=== PATIENT | male | born 1940 | race Caucasian/White ===

== ENCOUNTER 2016-11-29 11:28 | Outpatient (CLI) | END 2016-11-29 11:29 | disposition home or self-care (01) | CPT/HCPCS: 99213; G0463 ==

== ENCOUNTER 2018-03-28 08:00 | Outpatient (CLI) | payer MEDICARE, OTHER ==
[2018-03-28 19:39] LABS: BASOPHILS # (AUTO) 0.1 10^3/uL (0.0-0.1); BASOPHILS % (AUTO) 0.7 %; EOSINOPHILS # (AUTO) 0.1 10^3/uL (0.0-0.7); EOSINOPHILS % (AUTO) 0.9 %; HGB - HEMOGLOBIN 13.7 g/dL (14.0-18.0); LYMPHOCYTES % (AUTO) 14.3 %; MEAN CORPUSCULAR HGB CONC 33.6 g/dL (32.0-36.0); MEAN CORPUSCULAR VOLUME 89.4 fL (80.0-94.0); MEAN PLATELET VOLUME 8.6 fL (7.4-11.4); MONOCYTES # (AUTO) 0.5 10^3/uL (0.0-1.0); MONOCYTES % (AUTO) 7.5 %; NEUTROPHILS # (AUTO) 5.3 10^3/uL (1.5-6.6); NEUTROPHILS % (AUTO) 76.6 %; PLT - PLATELET COUNT 168 10^3/uL (130-450); RED BLOOD COUNT 4.55 10^6/uL (4.70-6.10); RED CELL DISTRIBUTION WIDTH 13.2 % (12.0-15.0); WHITE BLOOD COUNT 6.9 x10^3/uL (4.8-10.8)
[2018-03-28 19:45] LABS: ALBUMIN 4.4 g/dL (3.2-5.5); ALBUMIN/GLOBULIN RATIO 1.7 (1.0-2.2); ALKALINE PHOSPHATASE 50 IU/L (42-121); ALT ALANINE AMINOTRANSFERASE 23 IU/L (10-60); AST ASPARTATE AMINOTRANSFERASE 23 IU/L (10-42); BILIRUBIN,TOTAL 0.7 mg/dL (0.2-1.0); BUN - BLOOD UREA NITROGEN 17 mg/dL (6-20); CALCIUM 9.2 mg/dL (8.5-10.3); CARBON DIOXIDE - CO2 28 mmol/L (21-32); CHLORIDE 101 mmol/L (101-111); CREATININE 0.9 mg/dL (0.6-1.2); GFR - MDRD 82 (>89); GLUCOSE 114 mg/dL (70-100); SODIUM 136 mmol/L (135-145)
[2018-03-28 19:51] LABS: TROPONIN I < 0.04 ng/mL (<0.49)
[2018-03-28 19:53] LABS: CREATINE KINASE MB 1.6 ng/mL (0.6-6.3)
== END 2018-03-28 08:01 | disposition home or self-care (01) ==
LOC: LAB.WCP 08:00
PROVIDERS: ATTEND Family Medicine
DX: R07.9 Chest pain, unspecified (principal)
CPT/HCPCS: 36415; 80053; 82553; 84443; 84484; 85025; 85379

== ENCOUNTER 2020-03-10 08:00 | Outpatient (CLI) | payer MEDICARE, OTHER ==
[2020-03-10 12:28] LABS: BASOPHILS % (AUTO) 0.8 %; EOSINOPHILS # (AUTO) 0.1 10^3/uL (0.0-0.7); EOSINOPHILS % (AUTO) 1.8 %; LYMPHOCYTES # (AUTO) 1.2 10^3/uL (1.5-3.5); LYMPHOCYTES % (AUTO) 30.5 %; MEAN PLATELET VOLUME 10.7 fL (7.4-11.4); MONOCYTES # (AUTO) 0.4 10^3/uL (0.0-1.0); MONOCYTES % (AUTO) 9.4 %; NEUTROPHILS # (AUTO) 2.3 10^3/uL (1.5-6.6); NEUTROPHILS % (AUTO) 57.2 %; PLT - PLATELET COUNT 209 10^3/uL (130-450); RED BLOOD COUNT 4.51 10^6/uL (4.70-6.10); RED CELL DISTRIBUTION WIDTH 11.9 % (12.0-15.0); WHITE BLOOD COUNT 3.9 x10^3/uL (4.8-10.8)
[2020-03-10 12:59] LABS: ALBUMIN 4.3 g/dL (3.2-5.5); ALBUMIN/GLOBULIN RATIO 1.7 (1.0-2.2); ALKALINE PHOSPHATASE 41 IU/L (42-121); ALT ALANINE AMINOTRANSFERASE 15 IU/L (10-60); AST ASPARTATE AMINOTRANSFERASE 19 IU/L (10-42); BILIRUBIN,TOTAL 0.8 mg/dL (0.2-1.0); BUN - BLOOD UREA NITROGEN 18 mg/dL (6-20); CALCIUM 9.1 mg/dL (8.5-10.3); CARBON DIOXIDE - CO2 27 mmol/L (21-32); CHLORIDE 107 mmol/L (101-111); CHOL/HDL RATIO 2.5 (<5.0); CHOLESTEROL 145 mg/dL; GLUCOSE 105 mg/dL (70-100); HDL CHOLESTEROL 58 mg/dL; LDL CHOLESTEROL,CALCULATED 73 mg/dL; LDL/HDL RATIO 1.3 (<3.6); SODIUM 137 mmol/L (135-145); TOTAL PROTEIN 6.9 g/dL (6.7-8.2); VLDL CHOLESTEROL 14 mg/dL
== END 2020-03-10 23:59 | disposition home or self-care (01) ==
LOC: LAB.WCP 08:00
PROVIDERS: ATTEND Family Medicine
DX: I10 Essential (primary) hypertension (principal); E78.5 Hyperlipidemia, unspecified; R42 Dizziness and giddiness; F90.9 Attention-deficit hyperactivity disorder, unspecified type
CPT/HCPCS: 36415; 80053; 80061; 83721; 84443; 85025

== ENCOUNTER 2020-06-11 10:59 | Outpatient (CLI) | payer MEDICARE | END 2020-06-11 23:59 | disposition home or self-care (01) | LOC: LAB.WCP 10:59 | PROVIDERS: ATTEND Family Medicine | DX: R41.3 Other amnesia (principal) | CPT/HCPCS: 36415; 82607 ==

== ENCOUNTER 2020-11-08 19:19 | Emergency (ER) | payer MEDICARE ==
[2020-11-08 20:01] LABS: BILIRUBIN,URINE NEGATIVE (NEGATIVE); GLUCOSE, URINE (UA) NEGATIVE (NEGATIVE); KETONES,URINE (UA) NEGATIVE (NEGATIVE); LEUKOCYTE ESTERASE, URINE NEGATIVE (NEGATIVE); NITRITE,URINE NEGATIVE (NEGATIVE); OCCULT BLOOD,URINE NEGATIVE (NEGATIVE); PROTEIN,URINE NEGATIVE (NEGATIVE); UROBILINOGEN,URINE 0.2 (NORMAL) E.U./dL (NORMAL)
[2020-11-08 20:03] LABS: CLARITY,URINE CLEAR (CLEAR)
[2020-11-08 20:13] LABS: BASOPHILS % (AUTO) 0.7 %; EOSINOPHILS # (AUTO) 0.1 10^3/uL (0.0-0.7); EOSINOPHILS % (AUTO) 1.8 %; HGB - HEMOGLOBIN 14.1 g/dL (14.0-18.0); LYMPHOCYTES # (AUTO) 1.6 10^3/uL (1.5-3.5); MEAN CORPUSCULAR HEMOGLOBIN 29.6 pg (27.0-31.0); MEAN CORPUSCULAR HGB CONC 32.1 g/dL (32.0-36.0); MEAN CORPUSCULAR VOLUME 92.2 fL (80.0-94.0); MEAN PLATELET VOLUME 9.8 fL (7.4-11.4); MONOCYTES # (AUTO) 0.3 10^3/uL (0.0-1.0); NEUTROPHILS # (AUTO) 3.4 10^3/uL (1.5-6.6); NEUTROPHILS % (AUTO) 62.1 %; PLT - PLATELET COUNT 205 10^3/uL (130-450); RED BLOOD COUNT 4.76 10^6/uL (4.70-6.10); RED CELL DISTRIBUTION WIDTH 11.9 % (12.0-15.0); WHITE BLOOD COUNT 5.5 x10^3/uL (4.8-10.8)
[2020-11-08 20:29] LABS: ALBUMIN 4.5 g/dL (3.2-5.5); ALBUMIN/GLOBULIN RATIO 1.7 (1.0-2.2); BILIRUBIN,TOTAL 0.7 mg/dL (0.2-1.0); CALCIUM 9.3 mg/dL (8.5-10.3); CREATININE 0.9 mg/dL (0.6-1.2); TOTAL PROTEIN 7.1 g/dL (6.7-8.2)
[2020-11-08] MEDS ORDERED: IOVERSOL 320 100 ML VIAL IVP ONE ×2 (20:58→21:27)
--- NOTE | 2020-11-08 21:12 | ED Physician Documentation ---
History of Present Illness - Stated complaint Stated Complaint: CONFUSION,MALE - Chief complaint Chief Complaint: General - History obtained from History obtained from: Patient, Family - History of Present Illness Timing: Today Pain level max: 0 Pain level now: 0 - Additonal information Additional information: 80-year-old male with confusion today. He could not remember where he was or what he was doing. This persisted for most of the day, is improving now. He did remember people's names. He did remember himself in who he was. The family states that he sounded like a broken record asking repetitive questions today. No other neurological deficits. Nothing makes it better or worse. Has never had similar symptoms in the past. No medication changes. No fevers or recent illness. Review of Systems Ten Systems: 10 systems reviewed and negative Constitutional: denies: Fever, Chills Nose: denies: Rhinorrhea / runny nose, Congestion Cardiac: denies: Chest pain / pressure Respiratory: denies: Cough GI: denies: Abdominal Pain, Nausea, Vomiting, Diarrhea Skin: denies: Rash Musculoskeletal: denies: Neck pain, Back pain Neurologic: denies: Generalized weakness, Focal weakness, Numbness, Headache PD PAST MEDICAL HISTORY - Past Medical History Past Medical History: Yes Cardiovascular: Murmur Respiratory: Other Endocrine/Autoimmune: None GI: Colon polyps : Other HEENT: None Psych: Depression, Anxiety Musculoskeletal: Osteoarthritis Derm: None - Past Surgical History Past Surgical History: Yes General: Appendectomy, Colonoscopy - Present Medications Home Medications: Ambulatory Orders Medication Instructions Recorded Confirmed Atorvastatin [Lipitor] 10 mg PO DAILY 11/08/20 11/08/20 - Allergies Allergies/Adverse Reactions: Allergies Allergy/AdvReac Type Severity Reaction Status Date / Time No Known Drug Allergies Allergy Verified 11/08/20 19:39 - Social History Does the pt smoke?: No Smoking Status: Never smoker Does the pt drink ETOH?: No Does the pt have substance abuse?: No PD ED PE NORMAL - Vitals Vital signs reviewed: Yes - General General: Alert and oriented X 3, No acute distress, Well developed/nourished - HEENT HEENT: Atraumatic, PERRL, Moist mucous membranes - Neck Neck: Supple, no meningeal sign - Cardiac Cardiac: RRR, Strong equal pulses - Respiratory Respiratory: No respiratory distress, Clear bilaterally - Abdomen Abdomen: Normal bowel sounds, Soft, Non tender, Non distended - Derm Derm: Warm and dry - Extremities Extremities: No edema - Neuro Neuro: Alert and oriented X 3, 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, No motor deficit, No sensory deficit, Normal speech Eye Opening: Spontaneous Motor: Obeys Commands Verbal: Oriented GCS Score: 15 - Psych Psych: Normal mood, Normal affect Results - Vitals Vitals: Vital Signs - 24 hr 11/08/20 11/08/20 19:27 21:46 Temperature 98.0 C H Heart Rate 72 62 Respiratory 18 18 Rate Blood Pressure 131/71 H 146/84 H O2 Saturation 99 99 Oxygen O2 Source Room air - EKG (time done) 2038 Rate: Rate (enter#) (64) Rhythm: NSR Odell: Normal Intervals: Normal [place] QRS: Normal Ischemia: Normal ST segments - Labs Labs: Laboratory Tests 11/08/20 11/08/20 11/08/20 19:50 20:08 20:08 WBC 5.5 RBC 4.76 Hgb 14.1 Hct 43.9 MCV 92.2 MCH 29.6 MCHC 32.1 RDW 11.9 L Plt Count 205 MPV 9.8 Neut # (Auto) 3.4 Lymph # (Auto) 1.6 [place] # (Auto) 0.3 Eos # (Auto) 0.1 Baso # (Auto) 0.0 Absolute Nucleated RBC 0.00 Nucleated RBC % 0.0 Sodium 137 Potassium 3.9 Chloride 102 Carbon Dioxide 27 Anion Gap 8.0 BUN 14 Creatinine 0.9 Estimated GFR (MDRD) 81 L Glucose 145 H Calcium 9.3 Total Bilirubin 0.7 AST 19 ALT 15 Alkaline Phosphatase 47 Total Protein 7.1 Albumin 4.5 Globulin 2.6 Albumin/Globulin Ratio 1.7 Lipase 27 Urine Color YELLOW Urine Clarity CLEAR Urine pH 7.0 Ur Specific [place] 1.015 Urine Protein NEGATIVE Urine Glucose (UA) NEGATIVE Urine Ketones NEGATIVE Urine Occult Blood NEGATIVE Urine Nitrite NEGATIVE Urine Bilirubin NEGATIVE Urine Urobilinogen 0.2 (NORMAL) Ur Leukocyte Esterase NEGATIVE Ur Microscopic Review NOT INDICATED Urine Culture Comments NOT INDICATED - Rads (name of study) CT angiogram head Radiology: Prelim report reviewed, EMP read contemporaneously, See rad report (No acute abnormality) CT angiogram neck Radiology: Prelim report reviewed, EMP read contemporaneously, See rad report (No acute abnormality) PD MEDICAL DECISION MAKING - ED course Complexity details: reviewed results, re-evaluated patient, considered differential, d/w patient, d/w family ED course: Patient with what appears to be transient global amnesia. Symptoms are rapidly resolving and he is back to his normal baseline. No acute findings on CT angiogram. He does not want to stay in the hospital for an MRI tomorrow.No evidence of UTI or infection. Normal NIH stroke scale. We will have him follow-up this week with his doctor for an MRI. Patient and family counseled regarding signs and symptoms for which I believe and urgent re-evaluation would be necessary. Patient with good understanding of and agreement to plan and is comfortable going home at this time This document was made in part using voice recognition software. While efforts are made to proofread this document, sound alike and grammatical errors may occur. Departure - Departure Disposition: 01 Home, Self Care Clinical Impression: Transient global amnesia Condition: Good Instructions: ED Altered Loc Follow-Up: Lex Lambert DO [Primary Care Provider] - Within 1 week Comments: Your testing is normal tonight. Your symptoms appear consistent with transient global amnesia. It is recommended that you have an outpatient MRI with your doctor. Return if you worsen. Follow-up with your doctor for further care. Discharge Date/Time: 11/08/20 22:20 NIHSS - Time Time: 20:20 - Level of Consciousness Level of consciousness: (0) Alert, Keenly responsive LOC Questions: (0) Answers both Q's correct LOC Commands: (0) Performs both correctly - Gaze Best Gaze: (0) Normal - Visual Visual: (0) No loss - Facial Palsy Facial Palsy: (0) Normal, symmetrical movement - Motor Arms (both separate) Motor Arm (right): (0) No drift Motor Arm (left): (0) No drift - Motor Legs (both separate) Motor Leg (right): (0) No drift Motor Leg (left): (0) No drift - Limb Ataxia Limb Ataxia: (0) Absent - Sensory Sensory: (0) Normal - Best Language Best Language: (0) No aphasia - Dysarthria Dysarthria: (0) Normal - Extinction and Inattention (formally neg Extinction and inattention: (0) No abnormality - Total Score/Results Total Score/Result: 0
--- NOTE | 2020-11-08 21:43 | CT Report ---
PROCEDURE: ANGIO NECK W INDICATIONS: altered mental status CONTRAST: IV CONTRAST: Optiray 320 ml: 100 PO CONTRAST: *NO PO CONTRAST TECHNIQUE: After the administration of intravenous contrast, 1.5 mm axial sections acquired from the aortic arch to the [place] of [place]inguez. Coronal 3-D maximum intensity projection (MIP) and/or volume rendering ref ormats were then performed. For radiation dose reduction, the following was used: automated exposur e control, adjustment of mA and/or kV according to patient size. COMPARISON: None. FINDINGS: Image quality: Excellent. Carotid system: The great vessels demonstrate a conventional anatomy as they arise from the aortic a [facility]. The origins of the common carotid arteries appear patent. The common carotid arteries demonstr ate normal calibers and courses. The bifurcation regions appear normal bilaterally. The internal ca rotid arteries demonstrate normal caliber and course. Posterior circulation: The origins of the vertebral arteries appear patent. The more superior porti ons of the vertebral arteries demonstrate normal course and caliber. They join to form a normal appe aring basilar artery. Soft tissues: Visualized neck soft tissues demonstrate no suspicious abnormalities. The left thyroi d lobe has a 1.3 cm hypodensity. Bones: No suspicious bony lesions. Visualized cervical spine appears normally aligned. IMPRESSION: 1. Normal CT angiogram of the neck. 2. 1.3 cm left thyroid lobe hypodensity. The estimate of stenosis included in the report of the imaging study was calculated using the NASCET method Reviewed by: Benton Lagos on 11/08/2020 9:42 PM PST Approved by: Benton Lagos on 11/08/2020 9:42 PM PST Station ID: [id number]
[2020-11-08 21:47] VITALS: BP 146/84
--- NOTE | 2020-11-08 21:48 | CT Report ---
PROCEDURE: ANGIO HEAD W/WO INDICATIONS: altered mental status CONTRAST: IV CONTRAST: Optiray 320 ml: 100 PO CONTRAST: *NO PO CONTRAST TECHNIQUE: Precontrast 4.5 mm thick angled axial sections acquired from the foramen magnum to the vertex. Afte r the administration of intravenous contrast, 1 mm thick sections acquired through the [place] of [place] is. Postcontrast 4.5 mm thick sections then re-acquired from the foramen magnum to the vertex. 3-di mensional kowculp-kziriyalc-pyywcskemx (MIP) and/or volume rendering reformats were acquired of the c entral intracranial vasculature. For radiation dose reduction, the following was used: automated ex posure control, adjustment of mA and/or kV according to patient size. COMPARISON: None FINDINGS: Image quality: Excellent. Anterior circulation: Intracranial internal carotid arteries are normal in size and flow. The flow within the paired anterior cerebral arteries is normal and symmetric. The flow within the middle cer ebral arteries is normal and symmetric. The anterior communicating artery is seen. No aneurysms are seen. Posterior circulation: Visualized portions of the vertebral arteries demonstrate normal caliber, and join to form a normal appearing basilar artery. Flow within the posterior cerebral arteries is norm al and symmetric. No aneurysms are seen. CSF spaces: Ventricles are normal in size and shape. Basal cisterns are patent. No extra-axial flu id collections. Brain: No midline shift. No intracranial bleeds or masses. [place]-white matter interface appears int act. Skull and face: Calvarium and facial bones appear intact, without suspicious lesions. Sinuses: Visualized sinuses and mastoids are clear. IMPRESSION: 1. No acute intracranial abnormality. 2. Normal CTA of the head. Reviewed by: Benton Lagos on 11/08/2020 9:47 PM PST Approved by: Benton Lagos on 11/08/2020 9:47 PM PST Station ID: [id number]
== END 2020-11-08 22:20 | disposition home or self-care (01) ==
LOC: ED 19:19
DX: G45.4 Transient global amnesia (principal)
CPT/HCPCS: 36415; 70496; 70498; 80053; 81003; 83690; 85025; 93005; 99284; 99285; Q9967; 81001; 87086

== ENCOUNTER 2020-11-10 08:59 | Observation (INO) | payer MEDICARE, OTHER ==
--- NOTE | 2020-11-10 09:51 | XRAY Report ---
PROCEDURE: Chest 1 View X-Ray INDICATIONS: Chest Pain TECHNIQUE: One view of the chest was acquired. COMPARISON: 03/28/2018 FINDINGS: Surgical changes and devices: None. Lungs and pleura: No pleural effusions or pneumothorax. Lungs are clear. Mediastinum: Mediastinal contours appear normal. Heart size is normal. Bones and chest wall: No suspicious bony lesions. Overlying soft tissues appear unremarkable. IMPRESSION: No acute cardiopulmonary pathology. Reviewed by: Geovanni Chong MD on 11/10/2020 9:49 AM [facility] Approved by: Geovanni Chong MD on 11/10/2020 9:49 AM [facility] Station ID: [id number]
[2020-11-10 09:57] LABS: BASOPHILS % (AUTO) 0.7 %; EOSINOPHILS # (AUTO) 0.1 10^3/uL (0.0-0.7); EOSINOPHILS % (AUTO) 2.8 %; HGB - HEMOGLOBIN 13.9 g/dL (14.0-18.0); LYMPHOCYTES # (AUTO) 1.2 10^3/uL (1.5-3.5); LYMPHOCYTES % (AUTO) 28.8 %; MEAN CORPUSCULAR HEMOGLOBIN 30.3 pg (27.0-31.0); MEAN CORPUSCULAR HGB CONC 33.2 g/dL (32.0-36.0); MEAN CORPUSCULAR VOLUME 91.5 fL (80.0-94.0); MEAN PLATELET VOLUME 9.5 fL (7.4-11.4); MONOCYTES # (AUTO) 0.4 10^3/uL (0.0-1.0); MONOCYTES % (AUTO) 8.8 %; NEUTROPHILS # (AUTO) 2.5 10^3/uL (1.5-6.6); NEUTROPHILS % (AUTO) 58.7 %; PLT - PLATELET COUNT 168 10^3/uL (130-450); RED BLOOD COUNT 4.58 10^6/uL (4.70-6.10); WHITE BLOOD COUNT 4.3 x10^3/uL (4.8-10.8)
[2020-11-10 10:11] LABS: ALBUMIN 4.1 g/dL (3.2-5.5); ALBUMIN/GLOBULIN RATIO 1.6 (1.0-2.2); BILIRUBIN,TOTAL 0.8 mg/dL (0.2-1.0); CALCIUM 9.2 mg/dL (8.5-10.3); TOTAL PROTEIN 6.7 g/dL (6.7-8.2)
[2020-11-10] MEDS ORDERED: LACTATED RINGERS 1,000 ML IV ONE (10:52)
[2020-11-10] MEDS ORDERED: ASPIRIN 325 MG TABLET PO STA (11:47)
--- NOTE | 2020-11-10 12:39 | ED Physician Documentation ---
PD HPI CHEST PAIN - Stated complaint Stated Complaint: CHEST PX - Chief complaint Chief Complaint: Cardiac - History obtained from History obtained from: Patient, Family () - Additional information Additional information: 80-year-old man with past medical history of high blood pressure, TBI, no prior cardiac history, presents with left-sided chest pain radiating to left shoulder starting suddenly at 9 AM associated with mild frontal headache. Pain is a 5 out of 10, constant, aching/sharp. Nonexertional. No shortness of breath. Denies dizziness or diaphoresis. Denies cough, fever or back pain. Review of Systems Ten Systems: 10 systems reviewed and negative Constitutional: denies: Fever, Chills Cardiac: reports: Chest pain / pressure Respiratory: denies: Dyspnea, Cough Neurologic: reports: Headache PD PAST MEDICAL HISTORY - Past Medical History Cardiovascular: Murmur Respiratory: Other Endocrine/Autoimmune: None GI: Colon polyps : Other HEENT: None Psych: Depression, Anxiety Musculoskeletal: Osteoarthritis Derm: None - Past Surgical History Past Surgical History: Yes General: Appendectomy, Colonoscopy - Present Medications Home Medications: Ambulatory Orders Medication Instructions Recorded Confirmed Atorvastatin [Lipitor] 10 mg PO DAILY 11/08/20 11/08/20 - Allergies Allergies/Adverse Reactions: Allergies Allergy/AdvReac Type Severity Reaction Status Date / Time No Known Drug Allergies Allergy Verified 11/10/20 09:21 - Social History Does the pt smoke?: No Smoking Status: Never smoker Does the pt drink ETOH?: No Does the pt have substance abuse?: No PD ED PE NORMAL - Vitals Vital signs reviewed: Yes - General General: Alert and oriented X 3 - HEENT HEENT: Atraumatic, PERRL, EOMI - Neck Neck: Supple, no meningeal sign, No JVD - Cardiac Cardiac: RRR - Respiratory Respiratory: No respiratory distress, Clear bilaterally - Abdomen Abdomen: Non tender, Non distended - Male Male : Deferred - Rectal Rectal: Deferred - Back Back: No CVA TTP - Derm Derm: Normal color - Extremities Extremities: No deformity, No edema - Neuro Neuro: Alert and oriented X 3 (mild word finding difficulty. ) Results - Vitals Vitals: Vital Signs - 24 hr 11/10/20 11/10/20 11/10/20 09:18 09:38 10:15 Temperature 36.4 C L Heart Rate 67 68 62 Respiratory 20 16 21 Rate Blood Pressure 140/82 H 108/77 131/72 H O2 Saturation 99 98 98 11/10/20 10:57 Temperature Heart Rate 59 L Respiratory 13 Rate Blood Pressure 127/75 O2 Saturation 98 Oxygen O2 Source Room air - EKG (time done) 1153 Rate: Rate (enter#) (63) Rhythm: NSR - Labs Labs: Laboratory Tests 11/10/20 11/10/20 11/10/20 09:48 09:48 09:48 WBC 4.3 L RBC 4.58 L Hgb 13.9 L Hct 41.9 L MCV 91.5 MCH 30.3 MCHC 33.2 RDW 12.0 Plt Count 168 MPV 9.5 Neut # (Auto) 2.5 Lymph # (Auto) 1.2 L [place] # (Auto) 0.4 Eos # (Auto) 0.1 Baso # (Auto) 0.0 Absolute Nucleated RBC 0.00 Nucleated RBC % 0.0 Sodium 141 Potassium 4.3 Chloride 105 Carbon Dioxide 29 Anion Gap 7.0 BUN 23 H Creatinine 1.0 Estimated GFR (MDRD) 72 L Glucose 107 H Calcium 9.2 Total Bilirubin 0.8 AST 15 ALT 15 Alkaline Phosphatase 43 Troponin I High Sens 23.8 H* Total Protein 6.7 Albumin 4.1 Globulin 2.6 Albumin/Globulin Ratio 1.6 Lipase 26 PD MEDICAL DECISION MAKING - ED course Complexity details: re-evaluated patient, d/w patient, d/w family, d/w netsuite consultant ED course: 80-year-old male with history of high blood pressure, no prior cardiac history and no prior cardiac work-up presents with chest pain starting at 9 AM, also with elevated troponin of 23.8. Discussed with hospitalist who will see him in observation. Plan for stress test tomorrow. Departure - Departure Disposition: ED Place in Observation Clinical Impression: Chest pain, Headache, Shoulder pain Condition: Stable
[2020-11-10] MEDS ORDERED: SODIUM CHLORIDE FLUSH 0.9% 10 ML SYRINGE IVP PRN (12:47)
[2020-11-10] MEDS ORDERED: NITROGLYCERIN SL 0.4 MG TABLET SL PRN (12:52)
[2020-11-10 14:57] LABS: C. PNEUMONIAE- RESP PCR PANEL NOT DETECTED
--- NOTE | 2020-11-10 14:57 | PHARMACY PROGRESS NOTE ---
- Best Possible Medication History Admit Date and Time: 11/10/20 1247 Processed by: Pharmacy Medication History completed: Yes Patient Interview: Completed Secondary Source(s): Physician records (PATIENT INTERVIEWED BY INFORMATICS EDUCATOR. PATIENT ABLE TO CONFIRM HOME MEDICATON. PATIENT ONLY TAKES ATORVASTATIN AT HOME), Pharmacy records, Insurance records As the person ultimately responsible for medication therapy, providers are able to order a medication from an existing home medication list in [facility] via the "Reconcile Routine" prior to Confirmation of that medication by naval surface fire support planner. Such practice is discouraged except when the physician, in their clinical judgment, deems that a medical need exists for a medication without regard to previous use.
[2020-11-10] MEDS: ACETAMINOPHEN 325 MG TABLET PO PRN ×2 (17:46→22:19)
[2020-11-10] MEDS: SODIUM CHLORIDE FLUSH 0.9% 10 ML SYRINGE IVP SCH (17:47)
--- NOTE | 2020-11-10 19:36 | HISTORY & PHYSICAL EXAMINATION ---
DATE OF SERVICE: 11/10/2020 Physician: Ela Arevalo MD HISTORY OF PRESENT ILLNESS: This is a 80-year-old white male with a history of hypertension, previously on lisinopril, but currently no longer needs treatment; history of hyperlipidemia, on atorvastatin. He remembers having chest pain about 2 years ago for which he underwent evaluation and was told things were normal. He does not remember details of those symptoms or the evaluation. He was seen in the emergency room here just 24 hours ago for generalized amnesia. A head CT was unremarkable and his mentation improved under observation in the ER, and he was discharged home with recommendations to see his PCP, consideration for an MRI was advised. Today the patient awoke with new onset of chest pain. He states that it was a squeezing type of pain in the left anterior chest and after several minutes started to have the same feeling in his left upper arm. There was no shortness of breath, diaphoresis, palpitations, syncope. He denies dyspnea on exertion or leg edema. He states this is something like the old symptoms, but were much more severe and more squeezing in nature and shows me a Alvarez sign as he describes this. He took nothing for this at home, and then his brought him to the ER, his symptoms were dissipating on their own; therefore, he received nothing for chest pain in the ER, he states. He did receive 4 baby aspirin in the ER. He states that after being brought to his room, he was moving for sitting forward and did get another jabbing feeling of this similar kind of pain during changing body position. He is being placed in Observation status for lab testing of troponins and for evaluation of chest pain with a stress test and Echo. PAST MEDICAL HISTORY 1. Hypertension, but this has now resolved and he needs no treatment, according to him. 2. Hyperlipidemia, on medication. 3. Murmur as a child, which he "outgrew." FAMILY HISTORY: Negative for heart disease or diabetes. He has a brother that of unknown causes, a sister who is older than him and is in relatively good health. He has 2 children who are healthy. SOCIAL HISTORY: Lives with his second . 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 He is active around the house. He is a nonsmoker, who only smoked for about 5 years from age 31 to 36. He drinks no alcohol. There is no illicit drug use history. REVIEW OF SYSTEMS: The patient admits that his "memory is failing." He states he is compliant with his medications. A comprehensive review of systems was performed and the pertinent positives are listed, the rest are negative. MEDICATIONS: Atorvastatin 10 mg daily only. ALLERGIES: NONE. PHYSICAL EXAM GENERAL: White male who appears younger than his age. VITAL SIGNS: Blood pressure 128/90, heart rate 60 in sinus rhythm, afebrile, room air saturation 96. HEENT: Unremarkable. He has moist oral mucosa. NECK: No JVD or carotid bruits. CHEST: Clear. HEART: Distant heart sounds. There is a 1/6 systolic murmur at the lower left sternal border. There is no gallop evident. ABDOMEN: Soft, positive bowel sounds, nontender. EXTREMITIES: No clubbing, cyanosis, or edema. NEUROLOGIC: Grossly intact. LABORATORY DATA: Normal electrolytes, BUN 23, creatinine 1.0. The first troponin high sensitivity is 23.8. White blood count 4.3, hemoglobin 13.9, platelet count 168. No INR was done. His COVID test is negative. CHEST X-RAY: Unremarkable. EKG: Normal sinus rhythm. No acute changes. Compared to his EKG from 24 hours previously, he had J-point elevation then in lead V1 and V2. IMPRESSION/DIAGNOSES: 1. Chest pain. 2. Prerenal azotemia. 3. Hyperlipidemia. 4. Poor memory. 5. Hard of hearing. 6. Heart murmur. PLAN: Place the patient in Observation status on telemetry. Obtain troponin set #2. Obtain a fasting lipid panel. Order sublingual nitroglycerin p.r.n. to give if chest pain should recur. Start him 1 baby aspirin daily. Obtain an Echo to evaluate for structural or valve abnormalities, given the heart murmur, and also evaluate for pericarditis given the positional nature of his chest pain. Proceed to a myocardial perfusion nuclear stress test. DEEP VENOUS THROMBOSIS PROPHYLAXIS: SCDs. CODE STATUS: FULL CODE. ATTESTATION: The patient is expected to be discharged or transferred to another facility within 72 hours within 96 hours: Yes. cc: Lex Lambert DO TD: 11/10/2020 19:11 [facility]
[2020-11-10] MEDS ORDERED: ATORVASTATIN 10 MG TABLET PO SCH (21:00)
[2020-11-11] MEDS: SODIUM CHLORIDE FLUSH 0.9% 10 ML SYRINGE IVP SCH ×2 (01:14→08:02)
[2020-11-11 05:27] LABS: BASOPHILS % (AUTO) 0.7 %; EOSINOPHILS # (AUTO) 0.2 10^3/uL (0.0-0.7); EOSINOPHILS % (AUTO) 3.5 %; HGB - HEMOGLOBIN 13.2 g/dL (14.0-18.0); LYMPHOCYTES # (AUTO) 1.6 10^3/uL (1.5-3.5); MEAN CORPUSCULAR HEMOGLOBIN 29.9 pg (27.0-31.0); MEAN CORPUSCULAR HGB CONC 32.4 g/dL (32.0-36.0); MEAN CORPUSCULAR VOLUME 92.3 fL (80.0-94.0); MEAN PLATELET VOLUME 9.7 fL (7.4-11.4); MONOCYTES # (AUTO) 0.3 10^3/uL (0.0-1.0); MONOCYTES % (AUTO) 7.5 %; NEUTROPHILS # (AUTO) 2.4 10^3/uL (1.5-6.6); NEUTROPHILS % (AUTO) 53.1 %; PLT - PLATELET COUNT 174 10^3/uL (130-450); RED BLOOD COUNT 4.42 10^6/uL (4.70-6.10); RED CELL DISTRIBUTION WIDTH 11.9 % (12.0-15.0); WHITE BLOOD COUNT 4.5 x10^3/uL (4.8-10.8)
[2020-11-11 05:38] LABS: CALCIUM 9.1 mg/dL (8.5-10.3); CREATININE 0.9 mg/dL (0.6-1.2)
[2020-11-11 05:48] LABS: CHOL/HDL RATIO 3.2 (<5.0); CHOLESTEROL 149 mg/dL; HDL CHOLESTEROL 47 mg/dL; LDL CHOLESTEROL,CALCULATED 88 mg/dL; LDL/HDL RATIO 1.9 (<3.6); VLDL CHOLESTEROL 14 mg/dL
[2020-11-11] MEDS ORDERED: ATORVASTATIN 10 MG TABLET PO SCH (09:00)
[2020-11-11] MEDS ORDERED: ASPIRIN EC 81 MG TABLET PO SCH (09:00)
[2020-11-11] MEDS ORDERED: REGADENOSON 0.4 MG/5 ML SYRINGE IVP ONE (11:20)
[2020-11-11] MEDS ORDERED: AMINOPHYLLINE 500 MG/20 ML VIAL ONE (11:20)
--- NOTE | 2020-11-11 13:06 | Discharge Plan ---
Discharge Plan Problem Reviewed?: Yes Disposition: Home, Self Care Condition: Stable Prescriptions: Aspirin EC [Ecotrin] 81 mg PO DAILY #30 tablet Diet: Cardiac Activity Restrictions: Activity as Tolerated Shower Restrictions: No Driving Restrictions: No Health Concerns: You were in Observation status to evaluate chest pain. Blood tests did not show a heart attack. You had an Echocardiogram and a stress test. These showed: mild leak of the tricuspid valve (which is your heart murmur), no inflammation around your heart, and a Normal stress test (checking for coronary blockages). Your cholesterol test showed good cholesterol control on your statin medication. You are being discharged with instructions to start taking 1 baby aspirin daily. You may take [id number] Enteric-coated baby aspirin, 81 mg daily or take it with the new prescription electronically sent to your [facility] pharmacy. Plan of Treatment: As above. Care Goals: Improvement in symptoms and stabilization are the goals. Assessment: Patient understands and is agreeable with the plan. Additional Instructions or Follow Up instructions: Please keep your appointment with your new PCP. If you have new or worsening symptoms, call your PCP for advice or come to the ED. No Smoking: If you smoke, Please STOP! Call for help. Follow-up with: Lex Lambert DO [Primary Care Provider] -
--- NOTE | 2020-11-11 14:48 | CARDIAC PROCEDURE NOTE ---
DATE OF SERVICE: 11/11/2020 Physician: Ela Arevalo MD INDICATION: Chest pain. CARDIAC RISK FACTORS: Male gender, advanced age, elevated cholesterol. DESCRIPTION OF PROCEDURE: After signing informed consent, the patient underwent a Jesus-protocol treadmill stress test with nuclear myocardial perfusion imaging. RESTING HEART RATE: 64. PEAK HEART RATE: 128 (90% predicted maximum heart rate for age). RESTING BLOOD PRESSURE: 134/87. PEAK BLOOD PRESSURE: 164/87. The patient exercised for 6 minutes on a Jesus-protocol treadmill stress test. He achieved a peak heart rate of 128 (90% PMHR) and 7.1 METs. The patient had mild to moderate shortness of breath but developed no chest pain during exercise. He reported his perceived exertion at 16/20 at peak on the Garcia scale. Oxygen saturation was 96-99% on room air throughout the test. RESTING EKG: Normal sinus rhythm and within normal limits. EKG AT PEAK: New RSR' develops in V2, flattening of waves in leads III, aVF, and V6 develop and [address] upsloping depressions in leads II, III, aVF, and V5 through V6. The T-wave abnormalities revert to baseline after 1 minute of recovery. The ST segments remain abnormal at the 5-minute carlito of recovery. Heart rate was very slow to recover after exercise; heart rate was 102 at 5 minutes post-exercise. SUMMARY 1. Normal resting electrocardiogram (EKG). 2. Fair-poor exercise tolerance. 3. Non-specific EKG changes develop with exercise. 4. Nuclear images reported separately and showed: Normal perfusion, no reperfusion defect or scar, normal LVEF. IMPRESSION: Normal stress test. RECOMMENDATIONS: 1. Start 1 baby aspirin daily. 2. Aggressive risk-factor management. cc: Lex Lambert DO TD: 11/11/2020 13:01 MTDDaniel
--- NOTE | 2020-11-11 15:09 | Nuclear Medicine Report ---
PROCEDURE: Rest and exercise myocardial perfusion SPECT with gated imaging and ejection fraction INDICATIONS: Chest pain RADIOPHARMACEUTICAL: 10.1 mCi Tc-99m Myoview IV at rest and 29.3 mCi Tc-99m Myoview IV at peak exerc ise. [id number] was performed. TECHNIQUE: Radiopharmaceutical was injected at peak stress test, and also at rest. SPECT images wer e obtained. SPECT myocardial perfusion images were displayed in short axis, horizontal long axis, an d vertical long axis views. Gated images were reviewed using AutoQUANT software. COMPARISON: None available. FINDINGS: Raw data: There is good myocardial labeling by radiotracer. No significant motion artifacts. Lung- to-heart ratio is 0.33 (normal is less than 0.38 for tetrafosmin tracer). Left ventricle function: Gated images demonstrate normal left ventricle wall thickening. No segment al wall motion abnormality. No transient ischemic dilation; TID is 0.97 (normal less than 1.3). The left ventricle resting end-diastolic volume is normal. Left ventricle stress ejection fraction is g reater than 70%; normal values are above 45%. Myocardial perfusion: There is normal distribution of activity in the left and right ventricular annie cardium. No fixed or reversible perfusion defects. IMPRESSION: 1. Normal myocardial perfusion images. No perfusion defect to suggest myocardial ischemia or infarct 2. Normal left ventricular volume and systolic pontine. 3. Please correlate with stress EKG report. The result was discussed with Dr. Arevalo. PQRS ATTESTATIONS: Measure 322 - Is this imaging test primarily performed on a low-risk surgery patient for preoperative evaluation within 30 days preceding their low-risk non-cardiac surgery? Low-risk surgery is defined as cardiac or myocardial infarction less than 1%, including (but not limited to) endoscopic pr ocedures, superficial procedures, cataract surgery, and excisional breast surgery: Answer: No Measure 323 - Is this imaging test performed primarily for the monitoring of an asymptomatic patient who had percutaneous coronary intervention on the visit date or within 2 years of the visit date? An swer: No Measure 324 - Is this imaging test performed primarily for the initial detection and risk assessment on an asymptomatic, low coronary heart disease patient? Low CHD risk definition = clinicians should consider the maximum number of available patient factors used to estimate risk based on [place] (A TP III criteria), typically age, gender, diabetes, smoking status, and use of blood pressure medicati on, and integrate age appropriate estimates for missing elements, such as LDL or standard blood press ure. Answer: No Reviewed by: Rocco Muhammad MD on 11/11/2020 3:07 PM PST Approved by: Rocco Muhammad MD on 11/11/2020 3:07 PM PST Station ID: [id number]
--- NOTE | 2020-11-11 15:34 | DISCHARGE SUMMARY ---
Discharge Summary Admit Date: 11/10/20 Discharge Date: 11/11/20 Discharging Provider: Dr Ela Arevalo Primary Care Provider: Dr Lex Lambert Code Status: Attempt Resuscitation Condition at Discharge: Stable Discharge Disposition: 01 Home, Self Care - HPI History of Present Illness: This is a 80-year-old white male who had a history of hypertension but no longer needs to be on blood pressure meds he says, and history of hyperlipidemia on a statin, who came to the ER here 2 days ago with total amnesia and had a work-up for TIA, but his memory improved while in the ER, and he was discharged and advised to see his PCP for further evaluation of worsening memory. Today he awoke with left-sided chest pressure with radiation to the left arm and his brought him to the ER. The first troponin was normal and EKG unremarkable. The chest pain had resolved on its own without ER treatment. The patient remembers having some kind of evaluation 2 years ago for chest pain and was told everything was stable. He will be placed in Observation status for telemetry monitoring, troponin measurement and for a stress test and Echo. - HOSPITAL COURSE Hospital Course: 1) Chest pain Because of his "poor memory", he could not report how long this episode of chest pain lasted. He then had another brief episode of similar "chest squeezing" when he was getting out of bed which was less than a minute. The next troponin was normal. An Echocardiogram was unremarkable with normal LVEF and no pericardial effusion. He underwent a treadmill stress test, achieved 7 METS, had no chest discomfort with exertion, had nonspecific EKG changes and the nuclear portion showed no evidence of reperfusion ischemia and no scar. It is advised that he start taking 1 baby aspirin daily for both stroke prophylaxis and management of possible angina. 2) Poor memory He had the CT of the head done prior to this Observation stay, and further work- up with an MRI and a Neurology evaluation was advised. While here, we did not ice that he repeatedly asked the same question over. 3) Prerenal azotemia His ER labs now showed BUN/creatinine ratio of 23/1.0. He received IV hydration overnight and the BUN/creatinine at discharge was 19/0.9. 4) Hyperlipidemia He had a fasting lipid panel checked that showed good LDL control on his statin: Total Cholesterol 149, LDL 88, Triglycerides 69, and HDL 47. 5) EGEGIK He wears bilateral hearing aids. 6) Heart murmur Patient reported that he had a heart murmur as a child that he "outgrew" and then thinks it has "come back". He did undergo an Echo that showed mild tricuspid regurgitation, with normal PA pressure. - ALLERGIES Allergies/Adverse Reactions: Allergies Allergy/AdvReac Type Severity Reaction Status Date / Time No Known Drug Allergies Allergy Verified 11/10/20 09:21 - MEDICATIONS Home Medications: Ambulatory Orders Medication Instructions Recorded Confirmed Atorvastatin [Lipitor] 10 mg PO DAILY 11/08/20 11/10/20 Aspirin EC [Ecotrin] 81 mg PO DAILY #30 tablet 11/11/20 - PHYSICAL EXAM AT DISCHARGE General Appearance: positive: No acute distress, Alert Eyes Bilateral: positive: Normal inspection, EOMI ENT: positive: No signs of dehydration, Other (EGEGIK, wears hearing aids) Neck: positive: Nml inspection, No JVD Respiratory: positive: No respiratory distress, Breath sounds nml Cardiovascular: positive: Regular rate & rhythm, Systolic murmur (12/02 at [facility]) Abdomen: positive: Non-tender, Nml bowel sounds, No distention Skin: positive: Warm, Dry Extremities: positive: Non-tender, No pedal edema Neurologic/Psychiatric: positive: Oriented x3, Other (Poor recall) - LABS Result Diagrams: 11/11/20 05:20 11/11/20 05:20 - DIAGNOSTIC IMAGING Diagnostic Imaging Results: Final report reviewed - FOLLOW UP Follow Up: See PCP in 5-10 days for follow-up. - TIME SPENT Time Spent in Discharge (Minutes): 30
[2020-11-11 15:51] VITALS: BP 116/73
== END 2020-11-11 16:00 | disposition home or self-care (01) ==
LOC: ED 08:59 → MS2 12:47
PROVIDERS: ADMIT Internal Medicine; ATTEND Internal Medicine
DX: R07.89 Other chest pain (principal); R41.3 Other amnesia; R79.89 Other specified abnormal findings of blood chemistry; E78.5 Hyperlipidemia, unspecified; H91.93 Unspecified hearing loss, bilateral; R01.1 Cardiac murmur, unspecified; Z20.828 Contact with and (suspected) exposure to other viral communicable diseases
CPT/HCPCS: 36415; 71045; 78452; 80048; 80053; 80061; 83690; 84484; 85025; 87631; 93005; 93017; 93306; 99285; A9270; A9500; G0378; J7120; U0004; 0202U; 83721

== ENCOUNTER 2021-05-26 01:18 | Emergency (ER) | payer MEDICARE, OTHER ==
--- NOTE | 2021-05-26 01:26 | ED Physician Documentation ---
History of Present Illness - Stated complaint Stated Complaint: POSS COVID - History obtained from History obtained from: Patient - History of Present Illness Timing: How many days ago (4-5) Improved by: no ameliorating factors Worsened by: no exacerbating factors - Additonal information Additional information: patient says symptoms started 4-5 days ago. he received a dose of COVID vaccination approximately 12 days ago as did his . developed symptoms approximately 1 week ago and last night was admitted to [facility] for hypoxia and pneumonia with high fever. patient () says he has the same symptoms as my , but despite repeated attempts, he insists he cannot describe nor offer what his symptoms are beyond I just dont feel well, and I feel ill. he denies dyspnea/shortness of breath, denies cough, denies fever, denies weakness. Review of Systems Constitutional: reports: Myalgias (answers in the affirmative with uncertainty), Fatigue (answers in the affirmative with uncertainty). denies: Fever, Chills, Sweats Cardiac: denies: Chest pain / pressure, Palpitations Respiratory: denies: Dyspnea, Cough GI: denies: Abdominal Pain, Nausea, Vomiting, Diarrhea Neurologic: denies: Generalized weakness, Focal weakness, Numbness, Headache PD PAST MEDICAL HISTORY - Past Medical History Cardiovascular: Murmur Respiratory: Other Endocrine/Autoimmune: None GI: Colon polyps : Other HEENT: None Psych: Depression, Anxiety Musculoskeletal: Osteoarthritis Derm: None - Past Surgical History Past Surgical History: Yes General: Appendectomy, Colonoscopy - Present Medications Home Medications: Ambulatory Orders Medication Instructions Recorded Confirmed Atorvastatin [Lipitor] 10 mg PO DAILY 11/08/20 11/10/20 Aspirin EC [Ecotrin] 81 mg PO DAILY #30 tablet 11/11/20 - Allergies Allergies/Adverse Reactions: Allergies Allergy/AdvReac Type Severity Reaction Status Date / Time No Known Drug Allergies Allergy Verified 05/26/21 01:23 - Social History Does the pt smoke?: No Smoking Status: Never smoker Does the pt drink ETOH?: No Does the pt have substance abuse?: No PD ED PE NORMAL - Vitals Vital signs reviewed: Yes - General General: Alert and oriented X 3, Well developed/nourished, Other (seems mildly anxious) - HEENT HEENT: Other (tacky mucous membranes) - Neck Neck: Supple, no meningeal sign - Cardiac Cardiac: RRR - Respiratory Respiratory: No respiratory distress, Clear bilaterally - Abdomen Abdomen: Soft, Non tender - Derm Derm: Normal color, Warm and dry - Neuro Neuro: Alert and oriented X 3, 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 parapertussis DNA (PCR) NOT DETECTED Nasal Coronavir 229E PCR NOT DETECTED Nasal Coronavir HKU1 PCR NOT DETECTED Nasal Coronavir NL63 PCR NOT DETECTED Nasal Coronavir OC43 PCR NOT DETECTED Nasal Enterovir/Rhinovir PCR NOT DETECTED Nasal Influenza B PCR NOT DETECTED Nasal Influenza A PCR NOT DETECTED Nasal Parainfluen 1 PCR NOT DETECTED Nasal Parainfluen 2 PCR NOT DETECTED Nasal Parainfluen 3 PCR NOT DETECTED Nasal Parainfluen 4 PCR NOT DETECTED Nasal RSV (PCR) NOT DETECTED Nasal B.pertussis DNA PCR NOT DETECTED Nasal C.pneumoniae (PCR) NOT DETECTED Dada Human Metapneumo PCR NOT DETECTED Nasal M.pneumoniae (PCR) NOT DETECTED Nasal SARS-CoV-2 (PCR) DETECTED A - Rads (name of study) CXR Radiology: Prelim report reviewed, See rad report PD MEDICAL DECISION MAKING - ED course Complexity details: reviewed results, re-evaluated patient, considered differential, d/w patient ED course: As was expected, patients Covid swab returned with positive result. He is in no apparent distress during ED stay, except for appearing mildly anxious at times. He appears adequately hydrated, with only mildly tacky/pasty mucous membranes. he is tolerating PO, including cups of water in emergency department without difficulty. Thus, he can continue to hydrate at home. His chest x-ray is normal, and his lungs are clear to auscultation bilaterally. His vital signs are normal including temperature, blood pressure, and pulse ox on room air. He speaks full sentences with no respiratory distress. He was reassurable as I explained to him that he would not need nor benefit from admission to the hospital at this time, but encouraged him to return if he feels symptoms are worsening, particularly if he develops shortness of breath, chest pain, weakness, vomiting Departure - Departure Disposition: 01 Home, Self Care Clinical Impression: COVID-19 Condition: Good Instructions: ED Viral Syndrome, COVID-19 [facility], COVID-19 [facility] Department Statement Discharge Date/Time: 05/26/21 03:17
[2021-05-26 02:29] LABS: CORONAVIRUS 229E-RESP PCR NOT DETECTED; CORONAVIRUS HKU1-RESP PCR NOT DETECTED; CORONAVIRUS NL63-RESP PCR NOT DETECTED; CORONAVIRUS OC43-RESP PCR NOT DETECTED
[2021-05-26 02:30] LABS: B. PARAPERTUSSIS- RESP PCR PAN NOT DETECTED; B. PERTUSSIS- RESP PCR PANEL NOT DETECTED; C. PNEUMONIAE- RESP PCR PANEL NOT DETECTED; HUMAN METAPNEUMOVIRUS NOT DETECTED; INFLUENZA A- RESP PCR PANEL NOT DETECTED; INFLUENZA B - RESP PCR PANEL NOT DETECTED; M. PNEUMONIAE- RESP PCR PANEL NOT DETECTED; PARAINFLUENZA VIRUS 1 NOT DETECTED; PARAINFLUENZA VIRUS 2 NOT DETECTED; PARAINFLUENZA VIRUS 3 NOT DETECTED; PARAINFLUENZA VIRUS 4 NOT DETECTED; RHINOVIRUS/ENTEROVIRUS NOT DETECTED; RSV- RESP PCR PANEL NOT DETECTED; SARS-CoV-2 -RESP PCR PANEL DETECTED
[2021-05-26 03:18] VITALS: BP 128/88
--- NOTE | 2021-05-26 10:29 | XRAY Report ---
PROCEDURE: Chest 1 View X-Ray INDICATIONS: COVID exposure TECHNIQUE: One view of the chest was acquired. COMPARISON: Chest x-ray 11/10/2020 FINDINGS: Surgical changes and devices: None. Lungs and pleura: No pleural effusions or pneumothorax. Lungs are clear. Mediastinum: Mediastinal contours appear normal. Heart size is normal. Bones and chest wall: No suspicious bony lesions. Overlying soft tissues appear unremarkable. IMPRESSION: No acute pulmonary process. Reviewed by: Kirti Celestin MD on 05/26/2021 10:28 AM PDT Approved by: Kirti Celestin MD on 05/26/2021 10:28 AM PDT Station ID: [id number]
== END 2021-05-26 03:17 | disposition home or self-care (01) ==
LOC: ED 01:18
DX: U07.1 COVID-19 (principal)
CPT/HCPCS: 0202U; 99283; 99284

== ENCOUNTER 2021-12-21 11:46 | Outpatient (CLI) | payer MEDICARE, OTHER ==
[2021-12-21 12:29] LABS: ALBUMIN 4.3 g/dL (3.2-5.5); ALBUMIN/GLOBULIN RATIO 1.7 (1.0-2.2); BILIRUBIN,TOTAL 0.8 mg/dL (0.2-1.0); CALCIUM 9.1 mg/dL (8.5-10.3); POTASSIUM 4.2 mmol/L (3.5-5.0); TOTAL PROTEIN 6.9 g/dL (6.7-8.2)
[2021-12-21] MEDS ORDERED: GADOBUTROL 10 MMOL/10 ML VIAL ONE (12:57)
[2021-12-21] MEDS ORDERED: GADOBUTROL 10 MMOL/10 ML VIAL IVP ONE (15:54)
--- NOTE | 2021-12-21 15:56 | MRI Report ---
PROCEDURE: Brain W/WO INDICATIONS: MEMORY LOSS CONTRAST: IV CONTRAST: Gadavist ml: 9.3 TECHNIQUE: Noncontrast axial T1 spin echo, axial T2 fast spin echo, sagittal and axial FLAIR, coronal T2 fast sp in echo, axial gradient echo, axial diffusion and ADC through the brain. After the administration of contrast, axial and coronal T1 spin echo with fat saturation through the brain. COMPARISON: None. FINDINGS: Image quality: Excellent. CSF spaces: Basal cisterns are patent. No extra-axial fluid collections. Ventricles are normal in size and shape. Brain: No midline shift. No intracranial bleeds or masses. No abnormal intracranial enhancement. There is cerebral volume loss for age. There is periventricular white matter chronic small vessel is chemic change. The brainstem appears normal. Diffusion-weighted images demonstrate no acute ischemi c insults. Mild cerebral and cerebellar volume loss as well as multifocal trace white matter hyperint ensities reflect a chronic ischemic change. Normal intravascular flow voids are present. Both [facility] ampi are unremarkable. Skull and face: Calvarial marrow is normal in signal. Orbits appear normal. Sinuses: Sinuses and mastoids appear clear. IMPRESSION: Age-appropriate atrophy and white matter chronic ischemic change without acute hemorrhage, infarct or mass lesion Reviewed by: Jitendra Powers MD on 12/21/2021 2:55 PM AKST Approved by: Jitendra Powers MD on 12/21/2021 2:55 PM AKST Station ID: [id number]
== END 2021-12-21 11:47 | disposition home or self-care (01) ==
LOC: LAB 11:46
PROVIDERS: ATTEND Family Medicine
DX: I10 Essential (primary) hypertension (principal); R41.3 Other amnesia
CPT/HCPCS: 36415; 70553; 80053; A9585

== ENCOUNTER 2022-08-22 08:00 | Outpatient (CLI) | payer MEDICARE, OTHER ==
--- NOTE | 2022-08-22 16:10 | XRAY Report ---
PROCEDURE: Shoulder 2 View RT INDICATIONS: R SHOULDER PX TECHNIQUE: 2 views of the shoulder were acquired. COMPARISON: None. FINDINGS: Bones: No fractures or dislocations. No suspicious bony lesions. Visualized ribs appear intact. M oderate acromioclavicular mild to moderate glenohumeral degenerative narrowing. No osteophytes. Soft tissues: Prominent calcific tendinitis is present. IMPRESSION: Acromioclavicular and glenohumeral arthritic narrowing. Reviewed by: Kirti Celestin MD on 08/22/2022 4:09 PM PDT Approved by: Kirti Celestin MD on 08/22/2022 4:09 PM PDT Station ID: [id number]
== END 2022-08-22 23:59 | disposition home or self-care (01) ==
LOC: DI.N 08:00
PROVIDERS: ATTEND Nurse Practitioner
DX: M19.011 Primary osteoarthritis, right shoulder (principal)

== ENCOUNTER 2022-08-22 08:00 | Outpatient (CLI) | payer MEDICARE, OTHER ==
[2022-08-22 18:00] LABS: BASOPHILS % (AUTO) 0.2 %; EOSINOPHILS # (AUTO) 0.1 10^3/uL (0.0-0.7); EOSINOPHILS % (AUTO) 0.4 %; HCT - HEMATOCRIT 41.5 % (42.0-52.0); HGB - HEMOGLOBIN 13.6 g/dL (14.0-18.0); LYMPHOCYTES # (AUTO) 1.2 10^3/uL (1.5-3.5); LYMPHOCYTES % (AUTO) 10.6 %; MEAN CORPUSCULAR HEMOGLOBIN 29.9 pg (27.0-31.0); MEAN CORPUSCULAR HGB CONC 32.8 g/dL (32.0-36.0); MEAN CORPUSCULAR VOLUME 91.2 fL (80.0-94.0); MEAN PLATELET VOLUME 10.5 fL (7.4-11.4); MONOCYTES # (AUTO) 0.9 10^3/uL (0.0-1.0); MONOCYTES % (AUTO) 7.6 %; NEUTROPHILS # (AUTO) 9.1 10^3/uL (1.5-6.6); NEUTROPHILS % (AUTO) 80.8 %; PLT - PLATELET COUNT 238 10^3/uL (130-450); RED BLOOD COUNT 4.55 10^6/uL (4.70-6.10); RED CELL DISTRIBUTION WIDTH 12.6 % (12.0-15.0); WHITE BLOOD COUNT 11.2 x10^3/uL (4.8-10.8)
[2022-08-22 18:04] LABS: BILIRUBIN,URINE NEGATIVE (NEGATIVE); GLUCOSE, URINE (UA) NEGATIVE (NEGATIVE); KETONES,URINE (UA) NEGATIVE (NEGATIVE); LEUKOCYTE ESTERASE, URINE NEGATIVE (NEGATIVE); NITRITE,URINE NEGATIVE (NEGATIVE); OCCULT BLOOD,URINE TRACE-INTA (NEGATIVE); PROTEIN,URINE NEGATIVE (NEGATIVE); UROBILINOGEN,URINE 0.2 (NORMAL) E.U./dL (NORMAL)
[2022-08-22 18:14] LABS: ALBUMIN 4.3 g/dL (3.2-5.5); ALBUMIN/GLOBULIN RATIO 1.4 (1.0-2.2); BILIRUBIN,TOTAL 0.8 mg/dL (0.2-1.0); CALCIUM 9.6 mg/dL (8.5-10.3); CREATININE 0.9 mg/dL (0.6-1.2); POTASSIUM 4.5 mmol/L (3.5-5.0); TOTAL PROTEIN 7.4 g/dL (6.7-8.2)
[2022-08-22 18:25] LABS: AMORPHOUS SEDIMENT,UR Moderate /LPF; BACTERIA,URINE None Seen /HPF (None Seen); CLARITY,URINE CLOUDY (CLEAR); RBC,URINE None Seen /HPF (0-5); SQUAMOUS EPITHELIAL CELL,UR NONE SEEN (<= Few); WBC,URINE 0-3 /HPF (0-3)
== END 2022-08-22 23:59 | disposition home or self-care (01) ==
LOC: LAB.N 08:00
PROVIDERS: ATTEND Nurse Practitioner
DX: R35.0 Frequency of micturition (principal)
CPT/HCPCS: 36415; 80053; 81001; 81003; 84153; 85025; 87086

== ENCOUNTER 2023-05-31 10:46 | Outpatient (CLI) | payer MEDICARE, OTHER ==
--- NOTE | 2023-05-31 12:12 | Ultrasound Report ---
PROCEDURE: Head or Neck Soft Tissue INDICATIONS: THYROID NODULE TECHNIQUE: Real-time scanning was performed of the thyroid gland, with image documentation. COMPARISON: None FINDINGS: Right: Thyroid lobe measures 3.4 x 1.4 x 1.4 cm, and is heterogeneous in echotexture. Left: Thyroid lobe measures 5.2 x 3.3 x 2.1 cm, and is heterogeneous in echotexture. Isthmus: 2 mm thick. Nodule number: 1 Location: Right inferior Size: 1.2 x 0.9 x 1.0 cm. Composition: Solid. Echogenicity: Hyperechoic. Shape: wider than tall. Margins: Smooth (0 points). Echogenic foci: None (0 points). Total points: 3 ACR TI-RADS category: 3. Nodule number: 2 Location: Left mid Size: 2.3 x 1.3 x 2.3 cm. Composition: Solid (2 points). Echogenicity: Hyperechoic (1 point). Shape: wider than tall. Margins: Smooth (0 points). Echogenic foci: None (0 points). Total points: 3 ACR TI-RADS category: 3. Nodule number: 3 Location: Left inferior/posterior Size: 2.4 x 2.6 x 2.1 cm. Composition: Mixed cystic and solid (1 point). Echogenicity: Hypoechoic (2 points). Shape: wider than tall. Margins: Smooth (0 points). Echogenic foci: None (0 points). Total points: 3 ACR TI-RADS category: 3. IMPRESSION: 1. Mildly suspicious thyroid nodules bilaterally. Recommend follow-up ultrasound in one year. ACR TI-RADS definitions and recommendations: TI-RADS 1 (benign): 0 points. FNA not needed. TI-RADS 2 (not suspicious): 2 points. FNA not needed. TI-RADS 3 (mildly suspicious): 3 points. "FNA if 2.5 cm or larger, follow up if 1.5 cm or larger (at 1, 3, and 5 years). TI-RADS 4 (moderately suspicious): 4-6 points. "FNA if 1.5 cm or larger, follow up if 1 cm or larger (at 1, 2, 3, and 5 years). TI-RADS 5 (highly suspicious): 7 points or more. "FNA if 1 cm or larger, follow up if 0.5 cm or larger (every year for 5 years). Reviewed by: Rocco Muhammad MD on 05/31/2023 12:11 PM PDT Approved by: Rocco Muhammad MD on 05/31/2023 12:11 PM PDT Station ID: [id number]
== END 2023-05-31 10:47 | disposition home or self-care (01) ==
LOC: DI 10:46
PROVIDERS: ATTEND Physician Assistant
DX: E04.2 Nontoxic multinodular goiter (principal)

== ENCOUNTER 2023-12-06 08:34 | Outpatient (CLI) | payer MEDICARE, OTHER ==
[2023-12-06 08:55] LABS: BASOPHILS % (AUTO) 0.5 %; EOSINOPHILS # (AUTO) 0.1 10^3/uL (0.0-0.7); EOSINOPHILS % (AUTO) 1.3 %; HCT - HEMATOCRIT 42.9 % (42.0-52.0); HGB - HEMOGLOBIN 14.1 g/dL (14.0-18.0); LYMPHOCYTES # (AUTO) 1.1 10^3/uL (1.5-3.5); LYMPHOCYTES % (AUTO) 29.3 %; MEAN CORPUSCULAR HGB CONC 32.9 g/dL (32.0-36.0); MEAN CORPUSCULAR VOLUME 91.3 fL (80.0-94.0); MEAN PLATELET VOLUME 9.5 fL (7.4-11.4); MONOCYTES # (AUTO) 0.3 10^3/uL (0.0-1.0); MONOCYTES % (AUTO) 9.1 %; NEUTROPHILS # (AUTO) 2.2 10^3/uL (1.5-6.6); NEUTROPHILS % (AUTO) 59.8 %; PLT - PLATELET COUNT 171 10^3/uL (130-450); RED CELL DISTRIBUTION WIDTH 12.5 % (12.0-15.0); WHITE BLOOD COUNT 3.8 x10^3/uL (4.8-10.8)
[2023-12-06 09:15] LABS: ALBUMIN 4.4 g/dL (3.2-5.5); ALBUMIN/GLOBULIN RATIO 2.1 (1.0-2.2); ALKALINE PHOSPHATASE 64 IU/L (42-121); ALT ALANINE AMINOTRANSFERASE 11 IU/L (10-60); AST ASPARTATE AMINOTRANSFERASE 16 IU/L (10-42); BILIRUBIN,TOTAL 0.7 mg/dL (0.2-1.0); BUN - BLOOD UREA NITROGEN 24 mg/dL (6-20); CALCIUM 9.6 mg/dL (8.5-10.3); CARBON DIOXIDE - CO2 34 mmol/L (21-32); CHLORIDE 104 mmol/L (101-111); CHOL/HDL RATIO 2.7 (<5.0); CHOLESTEROL 186 mg/dL; CREATININE 0.8 mg/dL (0.6-1.3); GFR - MDRD 93 (>89); GLUCOSE 97 mg/dL (74-104); HDL CHOLESTEROL 68 mg/dL; LDL CHOLESTEROL,CALCULATED 106 mg/dL; LDL/HDL RATIO 1.6 (<3.6); POTASSIUM 4.2 mmol/L (3.5-4.5); SODIUM 142 mmol/L (135-145); TOTAL PROTEIN 6.5 g/dL (6.4-8.9); TRIGLYCERIDES 58 mg/dL (48-352); VLDL CHOLESTEROL 12 mg/dL
[2023-12-06 09:26] LABS: THYROID STIMULATING HORMONE 4.87 uIU/mL (0.34-5.60)
[2023-12-06 12:14] LABS: ESTIMATED AVERAGE GLUCOSE 105 mg/dL (70-100); HEMOGLOBIN A1c% 5.3 % (4.27-6.07)
== END 2023-12-06 08:35 | disposition home or self-care (01) ==
LOC: LAB 08:34
PROVIDERS: ATTEND Physician Assistant
DX: E87.6 Hypokalemia (principal); E78.5 Hyperlipidemia, unspecified; E53.8 Deficiency of other specified B group vitamins; R73.01 Impaired fasting glucose; F03.90 Unspecified dementia, unspecified severity, without behavioral disturbance, psychotic disturbance, mood disturbance, and anxiety; D64.9 Anemia, unspecified
CPT/HCPCS: 36415; 80053; 80061; 82607; 83036; 83721; 84443; 85025

== ENCOUNTER 2024-01-02 14:09 | Outpatient (CLI) | payer MEDICARE, OTHER ==
[2024-01-02 14:40] LABS: ABSOLUTE RETICS # AUTO 0.039 10^6/uL (0.020-0.110); BASOPHILS % (AUTO) 0.4 %; EOSINOPHILS % (AUTO) 0.6 %; HCT - HEMATOCRIT 42.4 % (42.0-52.0); HGB - HEMOGLOBIN 13.9 g/dL (14.0-18.0); LYMPHOCYTES # (AUTO) 1.2 10^3/uL (1.5-3.5); LYMPHOCYTES % (AUTO) 25.8 %; MEAN CORPUSCULAR HGB CONC 32.8 g/dL (32.0-36.0); MEAN CORPUSCULAR VOLUME 91.4 fL (80.0-94.0); MONOCYTES # (AUTO) 0.4 10^3/uL (0.0-1.0); MONOCYTES % (AUTO) 7.7 %; NEUTROPHILS % (AUTO) 65.3 %; PLT - PLATELET COUNT 200 10^3/uL (130-450); RED BLOOD COUNT 4.64 10^6/uL (4.70-6.10); RED CELL DISTRIBUTION WIDTH 12.3 % (12.0-15.0); RETICULOCYTE COUNT % (AUTO) 0.85 % (0.5-2.3); WHITE BLOOD COUNT 4.7 x10^3/uL (4.8-10.8)
== END 2024-01-02 14:10 | disposition home or self-care (01) ==
LOC: LAB 14:09
PROVIDERS: ATTEND Physician Assistant
DX: E53.8 Deficiency of other specified B group vitamins (principal)
CPT/HCPCS: 36415; 82607; 82746; 83090; 83921; 85025; 85045